=== PATIENT | female | born 1980 | race Hispanic/Latino ===

== ENCOUNTER → 2018-06-24 12:59 | Outpatient (REF) | payer OTHER, SELFPAY | LOC: LAB 12:59 | PROVIDERS: Visit Provider Family Medicine | DX: Z34.80 Encounter for supervision of other normal pregnancy, unspecified trimester (principal) | CPT/HCPCS: 87081 ==

== ENCOUNTER 2018-07-15 13:11 | Inpatient (IN) | payer OTHER, SELFPAY ==
--- NOTE | 2018-07-15 | PATH_ITS ---
[facility] Accession Number: [id number] . 01 Material submitted: . FALLOPIAN TUBES . 01 Clinical history: . PORTIONS BILATERAL FALLOPIAN TUBES . 02 Diagnosis: Fallopian Tubes, Bilateral Tubal Ligation: Complete cross-sections of segments of fallopian tube x2. MRV/07/17/2018 . 02 Electronically signed: . Carissa Lama MD, Pathologist NPI- [id number] . 01 Gross description: . Received in formalin, labeled portions bilateral fallopian tubes, are two nonfimbriated segments of fallopian tubes (segment #1: length-1.5 cm, diameter-0.6 cm; segment #2: length-1.5 cm, diameter 0.5 cm) with boone-pink smooth shiny serosa and box unremarkable lumens. Printer Slotter Operator serial sections of each segment are submitted in cassettes A1 and A2, respectively. ([id number]) /MRV . 02 Pathologist provided ICD-10: Z30.2 . 02 CPT . 403938 Performed at: 01 [facility] [address], [place], [place] [id number] MD Lewis Canseco MD Phone: [phone] Performed at: [address] [facility] [facility] [address] [place], [place] [id number] MD Marquis Hinkle MD Phone: [phone]
--- NOTE | 2018-07-15 08:46 | PM.OBHP.1 ---
OB HPI Date/Time Date of admission: 07/15/18 Date Patient Seen: 07/15/18 Time Patient Seen: 14:03 History of Present Condition Chief complaint: c section 73207 : 2 Para: 1 Narrative: Karin Chahal is a 37 year old female G2 P 139 weeks gestational age by good dates transferred care from [place]. She has had no complications or problems previous section low transverse without complications. Presenting today for repeat section. Patient has felt well. No leaking fluid or bleeding pain otherwise feeling well. Good movement. Also desires permanent sterilization. Patient had normal Care no problems labs O positive antibody screen negative rubella positive varicella undone VDRL cystic fibrosis were normal she had a hemoglobin home on and he she was fine on her hemoglobin and hematocrit and house on iron due to 31.5 her hepatitis C was negative 1 hr glucose testing was normal she had a normal genetic screen. No other significant complications or problems. Patient has no significant medical history other than previous . 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 Has 1 child at home Previous 40 weeks section 7 lb female 05/09/2015 Past surgical history section. Medications vitamin and iron. Review of Systems Review of Systems All systems reviewed & are unremarkable except as noted in HPI and below Exam Narrative Exam Narrative: Alert female smiling in no acute distress. Lungs are clear. Heart regular rate and rhythm. Abdomen is gravid vertex by Avery's. Extremities without cyanosis clubbing edema. Normal neurologic exam. Assessment and Plan Plan: Plan: 39+ week intrauterine with previous section here for section. Desires tubal ligation which we also set up. Consent has been signed. No major issues proceed for section
--- NOTE | 2018-07-15 08:50 | P.HPOB_ITS ---
OB HPI Date/Time Date of admission: 07/15/18 Date Patient Seen: 07/15/18 Time Patient Seen: 14:03 History of Present Condition Chief complaint: c section 09639 : 2 Para: 1 Narrative: Karin Chahal is a 37 year old female G2 P 139 weeks gestational age by good dates transferred care from [place]. She has had no complications or problems previous section low transverse without complications. Presenting today for repeat section. Patient has felt well. No leaking fluid or bleeding pain otherwise feeling well. Good movement. Also desires permanent sterilization. Patient had normal Care no problems labs O positive antibody screen negative rubella positive varicella undone VDRL cystic fibrosis were normal she had a hemoglobin home on and he she was fine on her hemoglobin and hematocrit and house on iron due to 31.5 her hepatitis C was negative 1 hr glucose testing was normal she had a normal genetic screen. No other significant complications or problems. Patient has no significant medical history other than previous . 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 Has 1 child at home Previous 40 weeks section 7 lb female 05/09/2015 Past surgical history section. Medications vitamin and iron. Review of Systems Review of Systems All systems reviewed & are unremarkable except as noted in HPI and below Exam Narrative Exam Narrative: Alert female smiling in no acute distress. Lungs are clear. Heart regular rate and rhythm. Abdomen is gravid vertex by Avery's. Extremities without cyanosis clubbing edema. Normal neurologic exam. Assessment and Plan Plan: Plan: 39+ week intrauterine with previous section here for section. Desires tubal ligation which we also set up. Consent has been signed. No major issues proceed for section
[2018-07-15] MEDS: LACTATED RINGERS 1,000 ML 42 ML IV ×2 (13:50→15:33)
[2018-07-15 14:09] LABS: Add Manual Diff / Slide Review NO; Basophils Percent Auto 1.2 % (0-2); Eosinophils Percent Auto 0.4 % (2-4); Hematocrit 32.5 % (36-46); Hemoglobin 11.3 g/dL (12.0-16.0); Lymphocytes Percent Auto 24.2 % (25-40); Mean Corpuscular HGB Conc 34.8 % (30-36); Mean Corpuscular Hemoglobin 30.8 PG (26-34); Mean Corpuscular Volume 88.5 fL (80-100); Monocytes Percent Auto 6.4 % (3-14); Neutrophils Absolute Auto 5800 /uL (3000-5900); Neutrophils Percent Auto 67.8 % (50-75); Platelet Count 195 X10^3/uL (150-400); Red Blood Cell Count 3.67 X10^6/uL (4.0-5.2); Red Cell Distribution Width 15.2 % (11.6-14.8); White Blood Cell Count 8.6 X10^3/uL (4.5-11.0)
[2018-07-15 14:22] VITALS: BP 105/59
[2018-07-15] MEDS: CEFOTETAN 2 GM/50 ML PIGGYBACK IV (15:08)
--- NOTE | 2018-07-15 15:24 | SUR.OPER ---
Supine on Padded OR bed, head on pillow, safety belt at thigh, arms secured on padded arm boards at <90 degrees abduction. Bump under right buttock. Legs uncrossed with pillow under knees, gel pad to heels, tape over blanket to lower legs.
--- NOTE | 2018-07-15 15:36 | SUR.OPER ---
VIABLE BABY BOY BORN AT 1531 FHT 164 AFTER SPINAL
--- NOTE | 2018-07-15 15:43 | SUR.OPER ---
CORD BLOOD X2 AND PLACENTA WITH OB RN
[2018-07-15 16:29] VITALS: BP 93/60; PULSE 65; RESP 13; TEMP 36.1; O2SAT 96
[2018-07-15 16:34] VITALS: BP 89/58; PULSE 61; RESP 15; O2SAT 96
[2018-07-15 16:39] VITALS: BP 93/59; PULSE 62; RESP 15; O2SAT 97
[2018-07-15 16:44] VITALS: BP 93/62; PULSE 61; RESP 15; O2SAT 96
[2018-07-15 16:49] VITALS: BP 91/60; PULSE 61; RESP 15; O2SAT 96
[2018-07-16] MEDS: IBUPROFEN 600 MG TABLET PO ×4 (01:05→20:07)
[2018-07-16 07:32] LABS: Hematocrit 32.7 % (36-46); Hemoglobin 11.2 g/dL (12.0-16.0)
[2018-07-16] MEDS: DOCUSATE 250 MG CAPSULE PO (08:56)
[2018-07-16] MEDS: PRENATAL VIT,CALC/IRON/FOLIC 1 TABLET 1 TAB PO (08:57)
[2018-07-16] MEDS: LANOLIN OINT 7 GM 1 APPLIC TOP (09:44)
--- NOTE | 2018-07-16 13:27 | PM.OBPN.1 ---
Subjective - OB Interval history: doing well without problems breast feeding well without problems tolerating po without difficulty Patient comments: pain well controlled, tolerating diet and flatus present [place] baby status: doing well feeding status: exclusively breast feeding Date Patient Seen: 07/16/18 Time Patient Seen: 08:00 Exam Vital Signs (past 8 hours): Oxygen Delivery Method Room Air Narrative Exam Narrative: AF VSS Neck: supple without lymphadenopathy Chest : CTA bilaterally Cor:RRR without murmur abdomen: bs present, soft, uterus firm, nontender. incision dry and clean extremities: trace edema; dtr intact Objective Labs Result Diagrams: 07/16/18 07:18 Labs: Laboratory Results - last 24 hr 07/15/18 07/15/18 07/16/18 13:50 13:50 07:18 WBC 8.6 RBC 3.67 L Hgb 11.3 L 11.2 L Hct 32.5 L 32.7 L MCV 88.5 MCH 30.8 MCHC 34.8 RDW 15.2 H Plt Count 195 Neut % (Auto) 67.8 Lymph % (Auto) 24.2 L [place] % (Auto) 6.4 Eos % (Auto) 0.4 L Baso % (Auto) 1.2 Neut # (Auto) 5800 Blood Type O Positive Antibody Screen Negative Assessment & Plan Time Spent With Patient Total time spent is greater than 50% in coordination of care (as documented) at patient's floor/unit and/or counseling patient: Postop day 1. Doing well Routine care support less than 15 minutes
[2018-07-17] MEDS: IBUPROFEN 600 MG TABLET PO ×2 (03:36→14:27)
[2018-07-17] MEDS: PRENATAL VIT,CALC/IRON/FOLIC 1 TABLET 1 TAB PO (09:30)
[2018-07-17] MEDS: DOCUSATE 250 MG CAPSULE PO (09:30)
[2018-07-17 10:25] VITALS: BP 91/60; PULSE 70; RESP 16; TEMP 36.2
--- NOTE | 2018-07-17 13:16 | PM.DS.1 ---
History of Present Illness Date Patient Seen: 07/17/18 Time Patient Seen: 13:16 Chief complaint: c section 26987 Narrative: See history and physical Discharge Providers Date of admission: 07/15/18 13:11 Consults: 07/15/18 17:02 Consult to Digital Content Producer Routine Comment: Discharge provider: Baljinder Sams MD Summary Discharge Diagnosis: Term 39 week intrauterine with previous section desired sterilization Hospital Course: Patient was admitted and section was undertaken she was transferred back to Labor and delivery and did well. Hematocrit was stable. She had minimal bleeding minimal pain. Was using only ibuprofen. Feeling great on day 2. Requesting to be discharged. Breast-feeding was going well. Passing gas good urine output. Espinoza was discontinued on day 1. No other significant changes or problems. Requesting to go home. Status at Discharge Cognitive/behavioral status at discharge: Normal Functional status at discharge: independent ambulation Overall status at discharge: patient is progressing back to baseline Time Spent with Patient Less than 30 minutes Exam Vital Signs (past 8 hours): Oxygen Delivery Method Room Air Narrative Exam Narrative: Alert female in no acute distress Lungs are clear. Heart regular rate and rhythm. Abdomen is soft positive bowel sounds moderate tenderness at lower quadrants uterine at umbilicus. Incision is clean and dry. Extremities without cyanosis clubbing edema. No calf tenderness Objective Labs Result Diagrams: 07/16/18 07:18 Discharge Plan Discharge Plan Patient Disposition: Home Discharge Med Rec/Prescriptions Prescriptions: New ibuprofen 600 mg Tablet 600 mg PO Q6HR PRN (Reason: As Needed For Fever/Mild Pain) Qty: 0 RF: 1 docusate sodium 250 mg Capsule 250 mg PO DAILY Qty: 0 RF: 1 Continue ferrous gluconate 324 mg (38 mg iron) tablet 1 tab PO DAILY RF: 0 PNV #[id number] 30 mg iron-10 mg iron-1 mg Capsule 1 tab PO DAILY RF: 0 Follow up/Referrals: Baljinder Sams MD [Physician] - 2 Weeks (Please call for appointment) Provider Discharge Instructions Diet: Diet as Tolerated Activity: No lifting greater than 15 lb. No intercourse for 6 weeks. Skin/Wound/Dressing Care Other wound treatment: Keep wound dry. Visit Report/Discharge Packet Print Language: American Discharge Data Attending Provider: Baljinder Sams Admit Date/Time: 07/15/18 13:11
--- NOTE | 2018-07-17 13:21 | P.DS_ITS ---
History of Present Illness Date Patient Seen: 07/17/18 Time Patient Seen: 13:16 Chief complaint: c section 23217 Narrative: See history and physical Discharge Providers Date of admission: 07/15/18 13:11 Consults: 07/15/18 17:02 Consult to Certified Medical Transcriptionist Routine Comment: Discharge provider: Baljinder Sams MD Summary Discharge Diagnosis: Term 39 week intrauterine with previous section desired sterilization Hospital Course: Patient was admitted and section was undertaken she was transferred back to Labor and delivery and did well. Hematocrit was stable. She had minimal bleeding minimal pain. Was using only ibuprofen. Feeling great on day 2. Requesting to be discharged. Breast-feeding was going well. Passing gas good urine output. Espinoza was discontinued on day 1. No other significant changes or problems. Requesting to go home. Status at Discharge Cognitive/behavioral status at discharge: Normal Functional status at discharge: independent ambulation Overall status at discharge: patient is progressing back to baseline Time Spent with Patient Less than 30 minutes Exam Vital Signs (past 8 hours): Oxygen Delivery Method Room Air Narrative Exam Narrative: Alert female in no acute distress Lungs are clear. Heart regular rate and rhythm. Abdomen is soft positive bowel sounds moderate tenderness at lower quadrants uterine at umbilicus. Incision is clean and dry. Extremities without cyanosis clubbing edema. No calf tenderness Objective Labs Result Diagrams: 07/16/18 07:18 Discharge Plan Discharge Plan Patient Disposition: Home Discharge Med Rec/Prescriptions Prescriptions: New ibuprofen 600 mg Tablet 600 mg PO Q6HR PRN (Reason: As Needed For Fever/Mild Pain) Qty: 0 RF: 1 docusate sodium 250 mg Capsule 250 mg PO DAILY Qty: 0 RF: 1 Continue ferrous gluconate 324 mg (38 mg iron) tablet 1 tab PO DAILY RF: 0 PNV #[id number] 30 mg iron-10 mg iron-1 mg Capsule 1 tab PO DAILY RF: 0 Follow up/Referrals: Baljinder Sams MD [Physician] - 2 Weeks (Please call for appointment) Provider Discharge Instructions Diet: Diet as Tolerated Activity: No lifting greater than 15 lb. No intercourse for 6 weeks. Skin/Wound/Dressing Care Other wound treatment: Keep wound dry. Visit Report/Discharge Packet Print Language: Libyan Discharge Data Attending Provider: Baljinder Sams Admit Date/Time: 07/15/18 13:11
--- NOTE | 2018-08-18 13:37 | P.OP_ITS ---
Operative Date/Time/Diagnoses Date of procedure: 08/18/18 Time of procedure: 13:30 Pre-op diagnosis: Term 39 week intrauterine with previous section Post-op diagnosis: same Procedure & Clinicians Procedure: Secondary low transverse section Same procedure as scheduled: Yes Indications: Previous section Surgeon: Baljinder Sams Investment Banker: Cynthia Scherer Anesthesia Type: Spinal Operative Notes Findings: Viable female infant. Normal pelvic organs Closure Type: primary Specimen(s): none sent Implants & Drains: Espinoza Applied: catheter Estimated Blood Loss (mL): 400 Blood products transfused: none Procedure in detail: Using scopes protocol. Patient was brought from Labor and delivery after having consent signed and rediscussed questions were answered both her and her . She was placed in the supine position on the operative table and spinal was placed without complications excellent results. She was placed in the wedge supine position and prepped and draped in usual manner after Espinoza was placed. A Pfannenstiel incision was then undertaken with sharp dissection through to the midline and then blunt dissection extending the cutaneous tissue. No significant bleeding. Midline was then entered on the fascia with sharp dissection extended with scissors bilaterally co curves were used to grasp the fascia and bluntly dissected off the muscles along with the midline with sharp scissors this was repeated inferiorly without complications. In the upper part of the incision the muscle layers worse is based with hemostats until peritoneum was identified peritoneum was then grasped with hemostats and cut with scissors blunt dissection was used to extend the wound without complications. Bladder blade was then placed into the incision and bladder flap was then grasped with Cymro forceps and incised and then bluntly developed bladder for blade was placed into the bladder flap. Low transverse incision was then cut across the uterus and then taken all the way through in the midline until clear fluid was noted. It was extended laterally. Baby was then delivered with head bulb suction rest of baby was delivered without complications cord was cut and handed off to waiting nurse. No resuscitation was required. Placenta was then manually extracted uterine contents were then swept with wet lap sponge x2 for products of conception. Inferior aspect of uterine incision was then grasped with ring forceps along with both corners running forceps was passed through the cervix into the vagina and handed off to waiting operative theater. Uterine incision was closed with 0 locked chromic a 2nd imbricating 0 chromic stitch was undertaken without complications. No bleeding. Irrigation was done and removed. Re-evaluated incision to found to be dry. The bladder flap was then closed with running 3 0 Vicryl. Peritoneum was then closed with 2 0 Vicryl. 220 Vicryl interrupted sutures use approximate the muscle layer. Fascia was then closed with 0 Vicryl. Running usual manner. Irrigation was done the subcutaneous tissue. 330 Vicryl interrupted suture used to approximate the wound edge. Closed with running 4 0 Vicryl. Subcuticular. All sponge instrument and needle counts were correct. Mother and baby were in stable condition. Incision was Steri- Strips and usual bandage were applied. No major other issues. Transferred to recovery. Complications: none Condition: stable Disposition: Acute Care
== END 2018-07-17 16:30 | disposition home or self-care (01) | DRG 766 ==
PROVIDERS: Admitting Provider Family Medicine; Visit Provider Family Medicine
PROC: 10D00Z1 Extraction of Products of Conception, Low, Open Approach (ICD-10-PCS; CPT 59514; principal; 2018-07-15 14:45)
DX: O34.211 Maternal care for low transverse scar from previous cesarean delivery (principal); Z3A.39 39 weeks gestation of pregnancy; Z37.0 Single live birth; Z30.2 Encounter for sterilization
CPT/HCPCS: 36415; 59050; 85014; 85018; 85025; 86850; 86900; 86901; J1100; J2274; J2405; J2590